=== PATIENT | male | born 1985 | race American Indian/Alaskan Native ===

== ENCOUNTER 2017-05-14 21:39 | Emergency (ER) | payer MEDICAID ==
[2017-05-14 22:55] LABS: Hematocrit 31.9 % (35.5-45.6); Hemoglobin 10.3 gm/dl (11.8-15.2); Mean Corpuscular HGB Conc 32 % (32-34); Mean Corpuscular Hemoglobin 28 pg (28-32); Mean Corpuscular Volume 88 fl (84-94); Platelet Count 253 K/mm3 (140-440); Red Blood Count 3.64 M/mm3 (3.65-5.03); Red Cell Distribution Width 19.9 % (13.2-15.2); White Blood Count 3.5 K/mm3 (4.5-11.0)
[2017-05-14 23:12] LABS: Anion Gap 21 mmol/L; BUN/Creatinine Ratio 14; Blood Urea Nitrogen 10 mg/dL (9-20); Calcium 9.6 mg/dL (8.4-10.2); Carbon Dioxide 21 mmol/L (22-30); Chloride 97.4 mmol/L (98-107); Glucose 125 mg/dL (75-100); Potassium 3.5 mmol/L (3.6-5.0); Sodium 136 mmol/L (137-145)
[2017-05-15 00:17] LABS: Blastocytes % (Manual) 0 %
[2017-05-15 00:18] LABS: Anisocytosis 1+; Diff Status Complete; Hypochromasia Few; Large Platelets Rare; Ovalocytes Few
[2017-05-15 00:57] LABS: Bilirubin,Urine NEG (Negative); Blood,Urine NEG (Negative); Ketones,Urine NEG (Negative); Leukocyte Esterase,Urine NEG (Negative); Mucus,Urine FEW /HPF; Nitrite,Urine NEG (Negative); Protein,Urine <15 mg/dL mg/dL (Negative); Urobilinogen,Urine < 2.0 mg/dL (<2.0)
--- NOTE | 2017-05-15 10:40 | Emergency Department Report ---
HPI - General Chief Complaint: Medical Clearance Time Seen by Provider: 05/15/17 10:19 - HPI HPI: Quinn 26 The patient is a 32-year-old male presenting with a chief complaint of herpes outbreak. Patient states she came to the emergency department because herpes outbreak and he has had pain in his back at the site of symptoms renal cyst drainage in the hospital 2-3 weeks ago. The patient has been in the emergency department for approximately 12 hours at the time of my evaluation this he stated while he was in the emergency department he had developed a headache because of his long wait but this has since resolved. Patient currently denies having a headache at all. Patient denies nausea/vomiting or diarrhea. Patient denies dysuria. Patient does admit to occasional cough that is dry. The patient is HIV positive and states he's been off of this antiretrovirals for approximately 3 months. Location: [See above] Duration: [See above] Quality: Pain Severity: Moderate Modifying factors: [see above] Context: [see above] Mode of transportation: Unknown ED Past Medical Hx - Past Medical History Previous Medical History?: Yes Hx Psychiatric Treatment: Yes (BIPOLAR) Hx HIV: Yes Additional medical history: AIDS. CELLULITIS. C-DIFF. HERPES. GOUT - Surgical History Past Surgical History?: Yes Additional Surgical History: RIGHT ANKLE - Family History Family history: no significant - Social History Smoking Status: Current Every Day Smoker (1/3 pack per day) Substance Use Type: None (denies illicit drug use) - Medications Home Medications: Home Medications Medication Instructions Recorded Confirmed Last Taken Type HYDROcodone/ACETAMINOPHEN [[place] 1 - 2 each PO Q4-6H PRN #20 tablet 05/15/17 Unknown Rx 5-325 Tablet] Ibuprofen [Motrin] 800 mg PO Q8HR PRN #20 tablet 05/15/17 Unknown Rx Valacyclovir HCl [Valtrex] 1,000 mg PO BID #20 tab 05/15/17 Unknown Rx ED Review of Systems ROS: Stated complaint: GROIN RASH Other details as noted in HPI Constitutional: denies: fever Respiratory: cough Gastrointestinal: denies: nausea, vomiting, diarrhea Genitourinary: other (herpes outbreak). denies: dysuria Musculoskeletal: back pain Skin: lesions Neurological: headache (resolved) Psychiatric: denies: anxiety, depression Hematological/Lymphatic: denies: easy bleeding, easy bruising Physical Exam - Physical Exam Vital Signs: Vital Signs 05/14/17 05/15/17 22:05 05:31 Temperature 98.3 F 98.3 F Pulse Rate 102 H 98 H Respiratory 17 18 Rate Blood Pressure 142/90 128/82 O2 Sat by Pulse 99 97 Oximetry Physical Exam: GENERAL: The patient is well-developed well-nourished male lying on stretcher not appearing to be in acute distress. [] HEENT: Normocephalic. Atraumatic. Extraocular motions are intact. Patient has moist mucous membranes. NECK: Supple. No meningitic signs are noted. There is no nuchal rigidity CHEST/LUNGS: Clear to auscultation. There is no respiratory distress noted. HEART/CARDIOVASCULAR: Regular. There is no tachycardia. There is no gallop rub or murmur. ABDOMEN: Abdomen is soft, nontender. Patient has normal bowel sounds. There is no abdominal distention. SKIN: . There is a herpetic rash perianally in the gluteal cleft and perineum. There is no edema. There is no diaphoresis. NEURO: The patient is awake, alert, and oriented. The patient is cooperative. The patient has no focal neurologic deficits. The patient has normal speech MUSCULOSKELETAL: There is right flank pain. There is no evidence of acute injury. ED Course Vital Signs 05/14/17 05/15/17 22:05 05:31 Temperature 98.3 F 98.3 F Pulse Rate 102 H 98 H Respiratory 17 18 Rate Blood Pressure 142/90 128/82 O2 Sat by Pulse 99 97 Oximetry ED Medical Decision Making - Lab Data Result diagrams: 05/14/17 22:40 05/14/17 22:40 Laboratory Tests 05/14/17 05/14/17 05/14/17 22:40 22:40 Unknown WBC 3.5 L RBC 3.64 L Hgb 10.3 L Hct 31.9 L MCV 88 MCH 28 MCHC 32 RDW 19.9 H Plt Count 253 Eos % (Auto) Clerk Guide Add Manual Diff Complete Total Counted 100 Seg Neutrophils % Clerk Guide Seg Neuts % (Manual) 39.0 L Band Neutrophils % 0 Lymphocytes % (Manual) 27.0 Reactive Lymphs % (Man) 0 Monocytes % (Manual) 6.0 Eosinophils % (Manual) 23.0 H Basophils % (Manual) 1.0 Metamyelocytes % 4.0 Myelocytes % 0 Promyelocytes % 0 Blast Cells % 0 Nucleated RBC % Not Reportable Seg Neutrophils # Man 1.4 L Band Neutrophils # 0.0 Lymphocytes # (Manual) 0.9 L Abs React Lymphs (Man) 0.0 Monocytes # (Manual) 0.2 Eosinophils # (Manual) 0.8 H Basophils # (Manual) 0.0 Metamyelocytes # 0.1 Myelocytes # 0.0 Promyelocytes # 0.0 Blast Cells # 0.0 WBC Morphology Not Reportable Hypersegmented Neuts Not Reportable Hyposegmented Neuts Not Reportable Hypogranular Neuts Not Reportable Smudge Cells Not Reportable Toxic Granulation Not Reportable Toxic Vacuolation Not Reportable Dohle Bodies Not Reportable Pelger-Huet Anomaly Not Reportable Arabella Rods Not Reportable Platelet Estimate Appears normal Clumped Platelets Not Reportable Plt Clumps, EDTA Not Reportable Large Platelets Rare Giant Platelets Not Reportable Platelet Satelliting Not Reportable Plt Morphology Comment Not Reportable RBC Morphology Not Reportable Dimorphic RBCs Not Reportable Polychromasia Not Reportable Hypochromasia Few Poikilocytosis Not Reportable Anisocytosis 1+ Microcytosis Not Reportable Macrocytosis Not Reportable Spherocytes Not Reportable Pappenheimer Bodies Not Reportable Sickle Cells Not Reportable Target Cells Not Reportable Tear Drop Cells Not Reportable Ovalocytes Few Helmet Cells Not Reportable Santos-[place] Bodies Not Reportable [place] Rings Not Reportable [place] Cells Not Reportable Bite Cells Not Reportable Crenated Cell Not Reportable Elliptocytes Not Reportable Acanthocytes (Spur) Not Reportable Rouleaux Not Reportable Hemoglobin C Crystals Not Reportable Schistocytes Not Reportable Malaria parasites Not Reportable Gabriele Bodies Not Reportable Hem Pathologist Commnt No Sodium 136 L Potassium 3.5 L Chloride 97.4 L Carbon Dioxide 21 L Anion Gap 21 BUN 10 Creatinine 0.7 L Estimated GFR > 60 BUN/Creatinine Ratio 14 Glucose 125 H Calcium 9.6 Urine Color Yellow Urine Turbidity Clear Urine pH 6.0 Ur Specific [employer] [place] 1.018 Urine Protein <15 mg/dl Urine Glucose (UA) Neg Urine Ketones Neg Urine Blood Neg Urine Nitrite Neg Urine Bilirubin Neg Urine Urobilinogen < 2.0 Ur Leukocyte Esterase Neg Urine WBC (Auto) 2.0 Urine RBC (Auto) 5.0 Urine Mucus Few - Radiology Data Radiology results: report reviewed (CT head, CT abdomen and pelvis), image reviewed (CT head, CT abdomen and pelvis) CT head (read by radiologist)-mild volume loss. No evidence of acute stroke or hemorrhage. Mucosal thickening in the sphenoid sinuses. CT of the abdomen and pelvis with IV contrast. History: Right flank pain. The patient gives a history of "renal cyst drainage 3 weeks ago". Findings: The liver, spleen, pancreas, gallbladder, and left kidney are normal. There is an ill-defined hypodense lesion in the posterior medial aspect of the left midpole measuring approximately 1.6 cm in diameter. The margins are slightly indistinct. There is minimal inflammation in the adjacent perirenal fat. There is no retroperitoneal adenopathy. No pelvic masses or abnormal fluid collections are seen. Impression: Hypodense lesion in the medial aspect of the right kidney with slight pararenal inflammatory changes. This does not have classic features of a simple cyst, but given the patient's stated history of renal cyst drainage, this may represent residual cyst with adjacent inflammatory changes. However imaging followup, either with ultrasound or repeat CT in 2-3 months is recommended. Transcribed By: MRP Dictated By: MADELIN CLAUDIO MD Electronically Authenticated By: MADELIN CLAUDIO MD Signed Date/Time: 05/15/17 1140 DD/ 1136 TD/TT: 05/15/17 1140 - Differential Diagnosis herpes outbreak, retroperitoneal hematoma, renal colic Critical care attestation.: If time is entered above; I have spent that time in minutes in the direct care of this critically ill patient, excluding procedure time. ED Disposition Clinical Impression: HSV (herpes simplex virus) anogenital infection Disposition: - TO HOME OR SELFCARE Is pt being admited?: No Does the pt Need Aspirin: No Condition: Stable Instructions: Herpes Zoster (ED) Additional Instructions: Return to the emergency department immediately should you develop worsening symptoms, fever, inability to tolerate food or liquid or any other concerns. Prescriptions: HYDROcodone/ACETAMINOPHEN [[place] 5-325 Tablet] 1 - 2 each PO Q4-6H PRN #20 tablet PRN Reason: Pain Ibuprofen [Motrin] 800 mg PO Q8HR PRN #20 tablet PRN Reason: Pain Valacyclovir HCl [Valtrex] 1,000 mg PO BID #20 tab Referrals: PRIMARY CARE, [Primary Care Provider] - 3-5 Days [facility] [Outside] - KIM Time of Disposition: 12:25
[2017-05-15] MEDS ORDERED: ZOFRAN IV ONE (10:41)
[2017-05-15] MEDS ORDERED: SUBLIMAZE IV ONE (10:41)
[2017-05-15] MEDS ORDERED: VALTREX PO ONE (11:00)
--- NOTE | 2017-05-15 11:00 | Cat Scan Report ---
FINAL REPORT EXAM: CT HEAD/BRAIN WO CON HISTORY: headache TECHNIQUE: Routine axial imaging was obtained of the brain without IV contrast. FINDINGS: There is mild volume loss. There is no evidence of acute stroke or hemorrhage. The ventricular system is appropriate in size and is symmetric. The sinuses reveal mucosal thickening in the sphenoid sinus. The mastoid air cells are well pneumatized IMPRESSION: Mild volume loss. No evidence of acute stroke or hemorrhage. Mucosal thickening in the sphenoid sinuses.
--- NOTE | 2017-05-15 11:57 | Cat Scan Report ---
CT of the abdomen and pelvis with IV contrast. History: Right flank pain. The patient gives a history of "renal cyst drainage 3 weeks ago". Findings: The liver, spleen, pancreas, gallbladder, and left kidney are normal. There is an ill-defined hypodense lesion in the posterior medial aspect of the left midpole measuring approximately 1.6 cm in diameter. The margins are slightly indistinct. There is minimal inflammation in the adjacent perirenal fat. There is no retroperitoneal adenopathy. No pelvic masses or abnormal fluid collections are seen. Impression: Hypodense lesion in the medial aspect of the right kidney with slight pararenal inflammatory changes. This does not have classic features of a simple cyst, but given the patient's stated history of renal cyst drainage, this may represent residual cyst with adjacent inflammatory changes. However imaging followup, either with ultrasound or repeat CT in 2-3 months is recommended.
[2017-05-15 12:54] VITALS: BP 126/77
== END 2017-05-15 14:10 | disposition home or self-care (01) ==
LOC: ED 21:39
DX: A60.9 Anogenital herpesviral infection, unspecified (principal); F31.9 Bipolar disorder, unspecified; Z21 Asymptomatic human immunodeficiency virus [HIV] infection status; R10.9 Unspecified abdominal pain; N28.1 Cyst of kidney, acquired; Z91.013 Allergy to seafood
CPT/HCPCS: 36415; 70450; 74177; 80048; 81001; 85007; 85025; 96374; 96375; 99284; J2405; J3010; Q9967

== ENCOUNTER 2019-09-18 17:37 | Emergency (ER) | payer MEDICAID ==
[2019-09-18 17:43] VITALS: BP 140/78
--- NOTE | 2019-09-18 18:17 | Emergency Department Report ---
Chief Complaint: Medical Clearance Stated Complaint: PIC LINE REMOVE Time Seen by Provider: 09/18/19 18:07 - HPI History of Present Illness: This is a 34-year-old male who presents to ED stating he wants to have his peak line removed. Patient states that PICC line was placed in [place] 6 weeks ago while he was being treated for MRSA. Patient states that he just had his last week of treatment and moved out here to the [place] area and wanted to have his PICC line removed. He denies any fever, no swelling bruising ecchymosis or any problems with the PICC line. - ROS Review of Systems: As noted in HPI - Exam Vital Signs: Vital Signs 09/18/19 09/18/19 17:40 17:43 Temperature 97.8 F Pulse Rate 107 H Respiratory 20 Rate Blood Pressure 140/78 [Right] O2 Sat by Pulse 97 Oximetry Physical Exam: GENERAL: Alert and oriented x3, no apparent distress, Normal Gait, atraumatic. EXTREMITIES/MUSCULOSKELETAL: PICC line to the right upper arm, no bruising, no ecchymosis, no cellulitis around PICC line SKIN: Warm and dry, No lesions, No ulceration or induration present. MSE screening note: Focused history and physical exam performed. Due to findings the following was ordered: ED Medical Decision Making - Medical Decision Making Patient presented here for PICC line removal. I discussed the patient with the PICC line nurse is only here to 4 PM. I discussed the patient to call whoever placed the PICC line in [place] to find resources to see if they can have it taken out. I discussed with patient he may return to the ED during the hours where there is a PICC line nurse available. Patient understand instructions. Patient had no acute distress in the ED. ED Disposition for MSE Clinical Impression: PIC line (peripherally inserted central catheter) removal Disposition: MED SCREENING EXAM-LEFT Is pt being admited?: No Does the pt Need Aspirin: No Condition: Stable Time of Disposition: 18:20
== END 2019-09-18 18:07 | disposition left against medical advice (07) ==
LOC: ED 17:37
DX: Z45.2 Encounter for adjustment and management of vascular access device (principal); Z88.2 Allergy status to sulfonamides; Z91.013 Allergy to seafood; Z88.8 Allergy status to other drugs, medicaments and biological substances
CPT/HCPCS: 99281